=== PATIENT | female | born 1965 | race American Indian/Alaskan Native ===

== ENCOUNTER 2019-06-21 17:40 | Emergency (ER) | payer OTHER ==
[2019-06-21] MEDS ORDERED: ONDANSETRON 4 MG ODT TAB PO ONE (21:30)
[2019-06-21] MEDS ORDERED: ACETAMINOPHEN W/CODEINE 300-30 MG TAB PO ONE (21:30)
[2019-06-21] MEDS ORDERED: LIDOCAINE-MPF (1%) 10 MG/1 ML VIAL 5 ML INFILTRATI ONE (21:30)
[2019-06-21] MEDS ORDERED: dexAMETHasone 20 MG/5 ML VIAL IM ONE (21:30)
[2019-06-21] MEDS ORDERED: IBUPROFEN 600 MG TAB PO ONE (21:30)
--- NOTE | 2019-06-21 22:39 | Emergency Department Report ---
ED General Adult HPI - General Chief complaint: Allergic Reaction Stated complaint: SWELLING/LYMPH NODE/NECK PAIN Source: patient Mode of arrival: Ambulatory Limitations: No Limitations - History of Present Illness Initial comments: Patient is a 54-year-old -[place] female with a history of hypertension who presents to the ED with complaint of acute onset persistent painful swollen anterior cervical lymph nodes, painful swollen intraoral in the upper lip due to open wounds last 1 month, was the last 4 days. Patient states that she initially suffered a fall landing on her face which resulted in her biting her upper lip over 1 month ago. Patient states that she cannot the intraoral puncture wound over her upper lip and subsequently the pain and swelling got worse. Patient states that in the last 4 days depilated swelling and pain and swelling anterior cervical lymph nodes got worse. Patient denies fever, chills, nausea, vomiting, swollen tongue, dizziness, chest pain, shortness of breath, sore throat, headache or neck pain. MD Complaint: Facial swelling; intraoral swollen and painful wound -: Gradual, month(s) (1) Location: face, mouth Radiation: non-radiation Severity scale (0 -10): 9 Quality: aching, sharp Consistency: constant Worsens with: none Associated Symptoms: denies other symptoms, headaches, loss of appetite, mal aise, rash (upper lip swelling and pain). denies: confusion, chest pain, cough, diaphoresis, fever/chills, nausea/vomiting, shortness of breath, syncope, weakness Treatments Prior to Arrival: none - Related Data Previous Rx's Medication Instructions Recorded Last Taken Type Acetaminophen/Codeine [Tylenol 1 tab PO Q6H PRN #10 tab 06/21/19 Unknown Rx /Codeine # 3 tab] Ibuprofen [Motrin] 600 mg PO Q8H PRN #24 tablet 06/21/19 Unknown Rx cephALEXin [Keflex] 500 mg PO Q6HR #40 capsule 06/21/19 Unknown Rx methylPREDNISolone [Medrol 4MG 4 mg PO DAILY #21 tab.ds.pk 06/21/19 Unknown Rx DOSEPAK (21 tabs)] Allergies Allergy/AdvReac Type Severity Reaction Status Date / Time No Known Allergies Allergy Verified 06/21/19 17:44 ED Review of Systems ROS: Stated complaint: SWELLING/LYMPH NODE/NECK PAIN Other details as noted in HPI Constitutional: denies: chills, fever, malaise Eyes: denies: eye pain, eye discharge, vision change ENT: other (swollen upper lip; inner upper lip open wound). denies: ear pain, throat pain Respiratory: denies: cough, shortness of breath, wheezing Cardiovascular: denies: chest pain, palpitations Endocrine: no symptoms reported Gastrointestinal: denies: abdominal pain, nausea, diarrhea Genitourinary: denies: urgency, dysuria, discharge Musculoskeletal: denies: back pain, joint swelling, arthralgia Skin: denies: rash, lesions Neurological: denies: headache, weakness, paresthesias Psychiatric: denies: anxiety, depression Hematological/Lymphatic: denies: easy bleeding, easy bruising ED Past Medical Hx - Past Medical History Previous Medical History?: Yes Hx Hypertension: Yes - Surgical History Past Surgical History?: No - Social History Smoking Status: Current Every Day Smoker Substance Use Type: Alcohol - Medications Home Medications: Home Medications Medication Instructions Recorded Confirmed Last Taken Type Acetaminophen/Codeine [Tylenol 1 tab PO Q6H PRN #10 tab 06/21/19 Unknown Rx /Codeine # 3 tab] Ibuprofen [Motrin] 600 mg PO Q8H PRN #24 tablet 06/21/19 Unknown Rx cephALEXin [Keflex] 500 mg PO Q6HR #40 capsule 06/21/19 Unknown Rx methylPREDNISolone [Medrol 4MG 4 mg PO DAILY #21 tab.ds.pk 06/21/19 Unknown Rx DOSEPAK (21 tabs)] ED Physical Exam - General Limitations: No Limitations General appearance: alert, in no apparent distress - Head Head exam: Present: atraumatic, normocephalic, normal inspection - Eye Eye exam: Present: normal appearance, PERRL, EOMI Pupils: Present: normal accommodation - ENT ENT exam: Present: normal orophraynx, mucous membranes moist, TM's normal bilaterally, normal external ear exam, other (Swollen painful upper lip due to erythematous open inner upper lip wounds) - Neck Neck exam: Present: normal inspection, full ROM, lymphadenopathy. Absent: tenderness, meningismus, thyromegaly - Respiratory Respiratory exam: Present: normal lung sounds bilaterally. Absent: respiratory distress, wheezes, rales, rhonchi, stridor, chest wall tenderness, accessory muscle use, decreased breath sounds - Cardiovascular Cardiovascular Exam: Present: normal rhythm, tachycardia, normal heart sounds. Absent: systolic murmur, diastolic murmur, rubs, gallop - GI/Abdominal GI/Abdominal exam: Present: soft, normal bowel sounds. Absent: tenderness, guarding, hyperactive bowel sounds, hypoactive bowel sounds, organomegaly, mass, pulsatile mass, hernia - Extremities Exam Extremities exam: Present: normal inspection, full ROM, normal capillary refill - Back Exam Back exam: Present: normal inspection, full ROM. Absent: tenderness, CVA tenderness (R), muscle spasm, paraspinal tenderness - Neurological Exam Neurological exam: Present: alert, oriented X3, CN II-XII intact, normal gait, reflexes normal - Psychiatric Psychiatric exam: Present: normal affect, normal mood - Skin Skin exam: Present: warm, dry, intact, normal color. Absent: rash ED Course Vital Signs 06/21/19 19:21 Temperature 98.6 F Pulse Rate 108 H Respiratory 18 Rate Blood Pressure 191/110 O2 Sat by Pulse 98 Oximetry - Reevaluation(s) Reevaluation #1: 06/21/19 22:39 This is a 54-year-old female who presented to the ED with swollen painful upper lip due to open wound in the inner upper lip with painful anterior cervical lymphadenopathy for 1 month after she suffered a fall, landing on her face and biting her upper lip. In the ED, patient is alert and oriented 3 and is not in distress, but tachycardic in triage and afebrile. Patient was treated in the ED with pain medications and started on antibiotics in the ED. On reevaluation, patient tachycardia resolved. Patient was discharged home on pain medications and antibiotics and advised to follow-up with her primary care physician in 7-10 days for reevaluation or return to the ED immediately if symptoms get worse. ED Medical Decision Making - Medical Decision Making This is a 54-year-old female who presented to the ED with swollen painful upper lip due to open wound in the inner upper lip with painful anterior cervical lymphadenopathy for 1 month after she suffered a fall, landing on her face and biting her upper lip. In the ED, patient is alert and oriented 3 and is not in distress, but tachycardic in triage and afebrile. Patient was treated in the ED with pain medications and started on antibiotics in the ED. On reevaluation, patient tachycardia resolved. Patient was discharged home on pain medications and antibiotics and advised to follow-up with her primary care physician in 7-10 days for reevaluation or return to the ED immediately if symptoms get worse. - Differential Diagnosis facial swelling; facial cellulitis; intraoral infection; lymphadenopathy Critical care attestation.: If time is entered above; I have spent that time in minutes in the direct care of this critically ill patient, excluding procedure time. ED Disposition Clinical Impression: Facial cellulitis, Swollen upper lip, Anterior cervical lymphadenopathy Disposition: TO HOME OR SELFCARE Is pt being admited?: No Does the pt Need Aspirin: No Condition: Stable Instructions: Cellulitis (ED), Lymphadenopathy (ED) Additional Instructions: Take medications, drink plenty of fluids and follow-up with your primary care physician in 7-10 days for reevaluation. Return to the ED immediately if symptoms get worse. Prescriptions: cephALEXin [Keflex] 500 mg PO Q6HR #40 capsule methylPREDNISolone [Medrol 4MG DOSEPAK (21 tabs)] 4 mg PO DAILY #21 tab.ds.pk Ibuprofen [Motrin] 600 mg PO Q8H PRN #24 tablet PRN Reason: Pain Acetaminophen/Codeine [Tylenol /Codeine # 3 tab] 1 tab PO Q6H PRN #10 tab PRN Reason: Pain , Severe (7-10) Referrals: PRIMARY CARE,MD [Primary Care Provider] - 3-5 Days Forms: Work/School Release Form(ED) Time of Disposition: 22:46 Print Language: CROATIAN
[2019-06-21 23:19] VITALS: BP 165/75
== END 2019-06-21 23:18 | disposition home or self-care (01) ==
LOC: ED 17:40
DX: L03.211 Cellulitis of face (principal); R22.0 Localized swelling, mass and lump, head; I10 Essential (primary) hypertension; F17.200 Nicotine dependence, unspecified, uncomplicated; Z79.899 Other long term (current) drug therapy
CPT/HCPCS: 96372; 99282; J0696; J1100; Q0162